=== PATIENT | female | born 1975 | race Caucasian/White ===

== ENCOUNTER 2018-03-08 12:16 | Day surgery (SDC) | payer OTHER ==
[2018-03-08] MEDS ORDERED: PROPOFOL 40 ML (17:41)
[2018-03-08] MEDS ORDERED: PROPOFOL 20 ML (18:21)
== END 2018-03-08 20:41 | disposition home or self-care (01) ==
LOC: GIL 12:16
DX: K29.70 Gastritis, unspecified, without bleeding (principal); D12.5 Benign neoplasm of sigmoid colon; K29.80 Duodenitis without bleeding; I10 Essential (primary) hypertension; E78.5 Hyperlipidemia, unspecified; E11.9 Type 2 diabetes mellitus without complications; E66.01 Morbid (severe) obesity due to excess calories; Z68.42 Body mass index [BMI] 45.0-49.9, adult
CPT/HCPCS: 43239; 82962; 88305; 88312